=== PATIENT | female | born 2000 | race African-American/Black ===

== ENCOUNTER 2022-09-10 14:35 | Emergency (ER) | payer SELFPAY ==
[~2022-09-10] VITALS: Ht 180.3 cm; Wt 134.6 kg
[2022-09-10] MEDS ORDERED: LEVEMIR100 UNIT SC (15:08)
[2022-09-10 15:19] VITALS: BP 129/80
[2022-09-10 15:31] VITALS: BP 122/80
[2022-09-10 15:46] VITALS: BP 148/111
[2022-09-10 16:11] LABS: HCG SERUM/URINE (NEG/POS) NEGATIVE (NEGATIVE)
[2022-09-10 16:13] LABS: BASO% 0.5 % (0-3); EOS% 0.6 % (0-8); HEMATOCRIT 44.2 % (37.0-47.0); HEMOGLOBIN 14.1 g/dl (12.0-16.0); IMMATURE GRANULOCYTES 0.4 % (0.0-5.0); LYMPH% 35.2 % (15-41); MEAN CELL VOLUME 73.9 fL CALC (80.0-100.0); MEAN CORPUSCULAR HGB 23.6 pG CALC (26.0-32.0); MEAN CORPUSCULAR HGB CONC 31.9 g/dL CAL (32.0-36.0); MONO% 6.2 % (2-13); NEUT# 4.88 thou/uL (2.00-7.15); NEUT% 57.1 % (42-76); RED BLOOD COUNT 5.98 mill/uL (4.20-5.60); RED CELL DISTRI WIDTH 14.6 % (11.5-15.5)
[2022-09-10 16:15] LABS: ALBUMIN 4.1 g/dL (3.2-5.0); ALKALINE PHOSPHATASE 78 u/l (38-126); ANION GAP 11 (6-22 (CALC)); BILIRUBIN, TOTAL 0.3 mg/dL (0.02-1.3); BUN 7 mg/dL (7-17); BUN/CREATININE RATIO 17 (12-20 (CALC)); CARBON DIOXIDE 29 mmol/l (22-30); CHLORIDE 99 mmol/l (95-108); CREATININE 0.4 mg/dL (0.5-1.0); GFR FOR AFR.AMER. > 60 ML/MIN (>=60 (CALC)); GFR OTHER RACES > 60 ML/MIN (>=60 (CALC)); POTASSIUM 3.8 mmol/l (3.5-5.1); SGOT/AST 27 u/l (14-36); SODIUM 136 mmol/l (137-146); TOTAL PROTEIN 7.6 g/dL (6.3-8.2)
[2022-09-10] MEDS ORDERED: ONDANSETRON4 MG PO (17:08)
[2022-09-10 18:17] VITALS: BP 148/111
== END 2022-09-10 18:19 | disposition home or self-care (01) | DRG 392 ==
LOC: ED 14:35
PROVIDERS: Family Medicine
DX: R11.2 Nausea with vomiting, unspecified (principal); R19.7 Diarrhea, unspecified; Z20.822 Contact with and (suspected) exposure to COVID-19; E11.9 Type 2 diabetes mellitus without complications; Z79.84 Long term (current) use of oral hypoglycemic drugs